=== PATIENT | female | born 2000 | race Caucasian/White ===

== ENCOUNTER 2022-07-24 20:22 | Outpatient (CLI) | payer OTHER ==
[~2022-07-24] VITALS: Ht 160 cm; Wt 114.2 kg
[2022-07-24] MEDS ORDERED: SING10TA32 PO (20:50)
[2022-07-24] MEDS ORDERED: PRENTAB9 PO (20:50)
[2022-07-24] MEDS ORDERED: MAGN400T2 PO (20:50)
[2022-07-24] MEDS ORDERED: CETI5SOL3 PO (20:50)
[2022-07-24] MEDS ORDERED: HOME MED LIST COMPLETE! XX SCH (20:55)
[2022-07-24 21:03] VITALS: BP 132/70
== END 2022-07-24 22:26 | disposition home or self-care (01) ==
LOC: M LDO 20:22
PROVIDERS: ATTEND Obstetrics & Gynecology
DX: O47.1 False labor at or after 37 completed weeks of gestation (principal); O99.513 Diseases of the respiratory system complicating pregnancy, third trimester; J45.909 Unspecified asthma, uncomplicated; O99.353 Diseases of the nervous system complicating pregnancy, third trimester; G43.909 Migraine, unspecified, not intractable, without status migrainosus; O99.343 Other mental disorders complicating pregnancy, third trimester; F32.A Depression, unspecified; F41.9 Anxiety disorder, unspecified; O99.213 Obesity complicating pregnancy, third trimester; E66.9 Obesity, unspecified; Z68.38 Body mass index [BMI] 38.0-38.9, adult; Z88.8 Allergy status to other drugs, medicaments and biological substances; Z79.899 Other long term (current) drug therapy; Z3A.39 39 weeks gestation of pregnancy
CPT/HCPCS: 59025; G0378; G0463

== ENCOUNTER 2022-08-01 07:33 | Inpatient (IN) | payer OTHER ==
[~2022-08-01] VITALS: Ht 160 cm; Wt 113.0 kg
[2022-08-01] VITALS (51 sets, daily range): BP systolic 102–173; BP diastolic 52–84
[~2022-08-01 07:33] MED LIST: CETI5SOL3 PO; MAGN400T2 PO; PRENTAB9 PO; SING10TA32 PO
[2022-08-01] MEDS ORDERED: OXYTOCIN INJ 10 UNITS/ML VIAL (J2590) IM PRN (07:45)
[2022-08-01] MEDS ORDERED: OXYTOCIN DRIP 30 UNITS in IV 1 EA IV SCH (07:45)
[2022-08-01] MEDS ORDERED: CARBOPROST TROMETHAMINE 250 MCG/ML AMP IM PRN (07:45)
[2022-08-01] MEDS ORDERED: LIDOCAINE 1% MDV 20ML VIAL INFIL PRN (07:45)
[2022-08-01] MEDS ORDERED: OXYTOCIN INJ 10 UNITS/ML VIAL (J2590) IV PRN (07:45)
[2022-08-01] MEDS ORDERED: ALBUTEROL 90 MCG/ACT 8GM HFA INHALER INH PRN (07:45)
[2022-08-01] MEDS ORDERED: METHYLERGONOVINE MALEATE 0.2 MG/ML VIAL (J2210) IM PRN (07:45)
[2022-08-01] MEDS ORDERED: OXYTOCIN DRIP 30 UNITS in IV 1 EA IV PRN ×6 (07:45)
[2022-08-01] MEDS ORDERED: TRANEXAMIC ACID INJection 1,000 MG in NS 100 ML IV PRN (07:45)
[2022-08-01] MEDS ORDERED: ALBU2.5V10 INH (07:50)
[2022-08-01] MEDS ORDERED: HOME MED LIST COMPLETE! XX SCH (07:55)
[2022-08-01] MEDS: LR 1,000 ML IV SCH ×4 (09:08→18:49)
[2022-08-01 09:19] LABS: BASO % 0.4 % (0.0-1.0); EOS # 0.1 10^3/uL (0.0-0.5); HEMATOCRIT 35.6 % (36.0-47.0); LYMPH # 2.2 10^3/uL (1.5-5.0); MEAN CORPUSCULAR HEMOGLOBIN 29.2 pg (27.0-33.0); MEAN CORPUSCULAR HGB CONC 33.7 g/dl (32.0-36.5); MEAN CORPUSCULAR VOLUME 86.6 fl (80.0-96.0); MONO # 0.7 10^3/uL (0.0-0.8); MONO % 6.3 % (2.0-8.0); NEUTROPHILS # 7.6 10^3/uL (1.5-8.5); NEUTROPHILS % 70.9 % (36.0-66.0); PLATELET COUNT, AUTOMATED 381 10^3/uL (150-450); RED BLOOD COUNT 4.11 10^6/uL (4.00-5.40); WHITE BLOOD COUNT 10.6 10^3/uL (4.0-10.0)
[2022-08-01] MEDS ORDERED: BUTORPHANOL 2 MG/ML INJ (J0595) IV ONE (11:55)
[2022-08-01] MEDS ORDERED: PROMETHAZINE 25MG/ML 1ML VIAL IV ONE (11:55)
[2022-08-01] MEDS ORDERED: FENTANYL 2MCG/ML ROPIVACAINE 0.2% IN 0.9% NACL 100ML IVBAG As Ordered ONE (14:10)
[2022-08-01] MEDS ORDERED: NALOXONE INJ 0.4MG/1ML VIAL (J2310 PER 1MG) IV PRN (14:35)
[2022-08-01] MEDS ORDERED: ONDANSETRON 4MG 2ML VIAL IV PRN (14:35)
[2022-08-01] MEDS ORDERED: LR 500 ML IV PRN (14:35)
[2022-08-01] MEDS ORDERED: FENTANYL/ROPIVACAINE/NACL BAG 100 ML EPIDURAL SCH (14:35)
[2022-08-01] MEDS ORDERED: EPIDURAL/PCA KEYS XX PRN (14:35)
[2022-08-01] MEDS: ePHEDrine SULFATE 25 MG/5 ML(5MG/ML) SYRINGE IVP PRN ×3 (15:15→17:51)
[2022-08-01] MEDS ORDERED: MOM 30ML SUSPENSION UDC PO PRN (21:35)
[2022-08-01] MEDS ORDERED: DIBUCAINE 1% OINTMENT 30GM TOP PRN (21:35)
[2022-08-01] MEDS ORDERED: METHYLERGONOVINE MALEATE 0.2 MG TAB PO PRN (21:35)
[2022-08-01] MEDS ORDERED: DOCUSATE SODIUM 100MG CAPSULE PO PRN (21:35)
[2022-08-01] MEDS ORDERED: ALBUTEROL SULFATE 2.5 MG/0.5 ML INH NEB SOLN INH PRN (23:25)
[2022-08-02 06:00] VITALS: BP 124/65
[2022-08-02] MEDS: ACETAMINOPHEN 500 MG TAB PO PRN ×2 (08:00→19:52)
[2022-08-02] MEDS: PRENATAL VITAMINS CHEWABLE TABLET PO SCH (08:00)
[2022-08-02] MEDS ORDERED: PRENATAL VITAMINS CHEWABLE TABLET PO SCH (09:00)
[2022-08-02] MEDS: IBUPROFEN 800 MG TAB PO PRN (14:51)
[2022-08-02 18:00] VITALS: BP 126/59
[2022-08-03 05:51] VITALS: BP 119/59
[2022-08-03] MEDS: IBUPROFEN 800 MG TAB PO PRN (06:22)
[2022-08-03] MEDS: PRENATAL VITAMINS CHEWABLE TABLET PO SCH (08:57)
[2022-08-03] MEDS ORDERED: MEASLES,MUMPS,RUBELLA VACCINE INJ (MMR-II) (90707) SC.IMMUN ONE (09:00)
[2022-08-03] MEDS ORDERED: INFLUENZA QUADRIVALENT PF VACCINE 0.5ML SYRINGE IM.IMMUN ONE (09:00)
== END 2022-08-03 12:40 | disposition home or self-care (01) | DRG 807 ==
LOC: M LDI 07:33 → M OBS 23:15
PROVIDERS: ADMIT Registered Nurse; ATTEND Obstetrics & Gynecology
PROC: 10E0XZZ Delivery of Products of Conception, External Approach (ICD-10-PCS; principal; 2022-08-01)
PROC: 3E033VJ Introduction of Other Hormone into Peripheral Vein, Percutaneous Approach (ICD-10-PCS; 2022-08-01)
DX: O48.0 Post-term pregnancy (principal); Z37.0 Single live birth; Z3A.40 40 weeks gestation of pregnancy; O99.52 Diseases of the respiratory system complicating childbirth; J45.909 Unspecified asthma, uncomplicated; Z79.899 Other long term (current) drug therapy